=== PATIENT | male | born 1975 | race Caucasian/White ===

== ENCOUNTER 2019-03-26 06:25 | Day surgery (SDC) | payer MEDICAID, MEDICARE ==
[~2019-03-26] VITALS: Ht 175.3 cm; Wt 77.0 kg
[~2019-03-26 06:25] MED LIST: ADV250INH PO; COPP2TAB PO; GABA800T4 PO; LEVE500T5 PO; LR 1,000 ML IV ONE; PANT40TA3 PO; PROAAER10 INH; SPIR1CAP INH
[2019-03-26] MEDS ORDERED: LIDOCAINE 2% INJ 100 MG/5 ML SDV (FOR ANES.) As Ordered ONE ×2 (07:12→07:14)
[2019-03-26] MEDS ORDERED: PROPOFOL 200 MG/20 ML VIAL As Ordered ONE ×3 (07:12→07:34)
[2019-03-26] MEDS ORDERED: ROCURONIUM BROMIDE 50 MG/5 ML VIAL As Ordered ONE (07:14)
[2019-03-26] MEDS ORDERED: MIDAZOLAM INJ 2 MG/2 ML VIAL (J2250) As Ordered ONE (07:14)
[2019-03-26] MEDS ORDERED: fentaNYL 100 MCG/2 ML INJECTION (J3010) As Ordered ONE (07:14)
[2019-03-26] MEDS ORDERED: THROMBIN SOLN 5,000 UNITS VIAL As Ordered ONE (07:18)
[2019-03-26] MEDS ORDERED: CETACAINE SPRAY 5GM As Ordered ONE (07:18)
[2019-03-26] MEDS ORDERED: EPINEPHrine 1MG/10ML SYRINGE 1.5IN As Ordered ONE (07:18)
[2019-03-26] MEDS ORDERED: LIDOCAINE 1% SDV INJ 30 ML VIAL As Ordered ONE (07:18)
[2019-03-26] MEDS ORDERED: LIDOCAINE VISCOUS 2% SOLN 15ML UDC As Ordered ONE (07:19)
[2019-03-26] MEDS ORDERED: ONDANSETRON 4MG/2ML VIAL (J2405) As Ordered ONE (08:03)
[2019-03-26] MEDS ORDERED: METOCLOPRAMIDE INJ 10MG/2ML VIAL (J2765) As Ordered ONE (08:03)
[2019-03-26] MEDS ORDERED: PHENYLephrine HCL 500 MCG/5 ML (100MCG/ML) SYRINGE (J2370) As Ordered ONE ×2 (08:12→08:23)
[2019-03-26] MEDS ORDERED: ePHEDrine SULFATE 25 MG/5 ML(5MG/ML) SYRINGE As Ordered ONE (08:19)
[2019-03-26] MEDS ORDERED: GLYCOPYRROLATE INJ 0.2 MG/ML 2 ML VIAL As Ordered ONE (08:22)
[2019-03-26] MEDS ORDERED: PHENYLEPHRINE INJ 10MG/ML VIAL (J2370) As Ordered ONE (08:27)
[2019-03-26 09:55] VITALS: BP 116/74
[2019-03-26] MEDS ORDERED: SUGAMMADEX SODIUM 500 MG/5 ML VIAL (BRIDION) As Ordered ONE (09:57)
--- NOTE | 2019-03-26 10:32 | REP ---
Portable chest x-ray: Single view. History: Postop. No comparison imaging. Findings: There is widening of the right paratracheal silhouette consistent with mediastinal lymphadenopathy. There is a nodular opacity in the perihilar region on the right which measures 2.2 cm. A second possible nodule is seen overlying the right heart border similar in size. A faint nodular opacity is seen in the periphery of the left mid lung zone. This is equivocal. Pleural angles are sharp. There is no evidence of pneumothorax. There is a skin fold visible on the left. Surgical clips are noted in the upper abdomen. Impression: Mediastinal lymphadenopathy with right and possibly left lung nodules. No pneumothorax seen. There is a artifactual density projecting over the left perihilar region. Electronically Signed by Yousuf Fam MD 03/26/2019 12:54 P
--- NOTE | 2019-03-26 11:21 | ROOR ---
Patient Name: Gustavo Mckinney Procedure Date: 03/26/2019 7:19 AM Date of : 1975 Admit Type: Outpatient Age: 43 Note Status: Finalized Attending MD: Daria Reaves MD Procedure: Bronchoscopy Indications: Right upper lobe nodule, Paratracheal adenopathy Providers: Daria Reaves MD (Doctor) Referring MD: 1. No Referring Physician 1. No Referring Physician, Admin. (Referring MD) Requesting Physician: Medicines: General Anesthesia, Cetacaine topical Complications: No immediate complications. Estimated blood loss: Minimal Procedure: Pre-Anesthesia Assessment: - Prior to the procedure, a History and Physical was performed, and patient medications and allergies were reviewed. The patient's tolerance of previous anesthesia was also reviewed. The risks and benefits of the procedure and the sedation options and risks were discussed with the patient. All questions were answered, and informed consent was obtained. Prior Anticoagulants: The patient has taken no previous anticoagulant or antiplatelet agents. ASA Grade Assessment: III - A patient with severe systemic disease. After reviewing the risks and benefits, the patient was deemed in satisfactory condition to undergo the procedure. The Bronchoscope was introduced through the mouth, via the endotracheal tube (the patient was intubated for the procedure) and advanced to the tracheobronchial tree of both lungs. The procedure was accomplished without difficulty. The patient tolerated the procedure well. Findings: The endotracheal tube is in good position. The visualized portion of the trachea is of normal caliber. The scotty is sharp. The tracheobronchial tree was examined to at least the first subsegmental level. Bronchial mucosa showed some pitting and webbing throughout. Bronchial anatomy was normal with a variant in lingula with three bronchial segmental branches; there are no endobronchial lesions, some nodularity of cartilage. There were scant white secretions noted Electromagnetic navigation bronchoscopy utilizing the [employer] MFGDimension system with iLogic upgrade was performed. The CT scan was used for planning purposes. A virtual bronchoscopic image was generated using the planning software and the scotty, left main bronchus scotty, left lower lobe basilar segment, right upper lobe, right middle lobe and right lower lobe basilar segment registration points were marked on the virtual image. The target in the anterior segment of the right upper lobe was marked. A nodule approx 1.2 cm in size was found and a pathway was created. After a complete airway exam, the locatable guide/extended working channel was inserted and an automatic registration was performed by advancing the scope through the scotty, left main bronchus scotty, left lower lobe basilar segment, right upper lobe, right middle lobe and right lower lobe basilar segment. The navigation phase was then begun to locate the target lesion(s). Positioning off-center (in relation to the lesion) was confirmed using the Olympus radial probe US catheter. The locatable guide was removed from the extended working channel. Fluoroscopy guided transbronchial brushings of a nodule were obtained in the anterior segment of the right upper lobe with a needle brush and sent for routine cytology. Transbronchial brushing technique was selected because the sampling site was not visible endoscopically. Transbronchial needle aspirations of a nodule were performed in the anterior segment of the right upper lobe using GenCut needle and sent for routine cytology and microbiology analysis. The procedure was guided by fluoroscopy. Transbronchial needle aspiration technique was selected because the sampling site was not visible endoscopically. Transbronchial biopsies of a nodule were performed in the anterior segment of the right upper lobe using forceps and sent for histopathology examination. The procedure was guided by fluoroscopy. Transbronchial biopsy technique was selected because the sampling site was not visible endoscopically. An endobronchial ultrasound endoscope was utilized in order to assist with fine needle aspiration in the right paratracheal area. Transbronchial needle aspirations of a lymph node were performed in the right paratracheal area using an Olympus EBUS-TBNA 21 gauge needle and sent for routine cytology and flow cytometry. The procedure was guided by ultrasound. Transbronchial needle aspiration technique was selected because the sampling site was not visible endoscopically. Impression: - Right upper lobe nodule - Paratracheal adenopathy - The airway examination was normal. - Electromagnetic navigation bronchoscopy was performed. - Transbronchial brushings were obtained. - A transbronchial needle aspiration was performed. - Transbronchial lung biopsies were performed. - Endobronchial ultrasound was performed. - A transbronchial needle aspiration was performed. Recommendation: - Await test results. Attending Participation: I personally performed the entire procedure. Daria Reaves MD 03/26/2019 11:21:18 AM Number of Addenda: 0 Note Initiated On: 03/26/2019 7:19 AM
== END 2019-03-26 10:23 | disposition home or self-care (01) ==
LOC: M SDC 06:25
PROVIDERS: ATTEND Internal Medicine Pulmonary Disease
DX: C34.11 Malignant neoplasm of upper lobe, right bronchus or lung (principal); C77.1 Secondary and unspecified malignant neoplasm of intrathoracic lymph nodes; R91.1 Solitary pulmonary nodule; R59.9 Enlarged lymph nodes, unspecified; J43.9 Emphysema, unspecified; E04.1 Nontoxic single thyroid nodule; E78.5 Hyperlipidemia, unspecified; F31.9 Bipolar disorder, unspecified; R51 Headache; G47.33 Obstructive sleep apnea (adult) (pediatric); R06.83 Snoring; M54.81 Occipital neuralgia; F17.210 Nicotine dependence, cigarettes, uncomplicated; Z88.5 Allergy status to narcotic agent; Z79.899 Other long term (current) drug therapy; Z98.84 Bariatric surgery status
CPT/HCPCS: 31623; 31627; 31628; 31629; 31652; 71045; 76000; 87070; 87102; 87116; 87205; 87206; 88104; 88108; 88173; 88305; 88313; 88341; 88342; J2250; J2370; J2405; J2765; J3010

== ENCOUNTER → 2021-08-08 | Outpatient (CLI) | payer MEDICARE ==
[~2021-08-08] MED LIST changes: +BRIN10TA4 PO; +FLUTISP INH; +IPRA0.00; -LR 1,000 ML IV ONE; +OMEP40CA4 PO; +PANT40TA29 PO; -PANT40TA3 PO; +TAMS1CAP17 PO
== END ==
LOC: M LABSMTC 11:52
PROVIDERS: ATTEND Anesthesiology
DX: Z01.818 Encounter for other preprocedural examination (principal); Z20.822 Contact with and (suspected) exposure to COVID-19

== ENCOUNTER 2021-08-10 07:50 | Day surgery (SDC) | payer MEDICARE ==
[~2021-08-10] VITALS: Ht 180.3 cm; Wt 81.6 kg
[~2021-08-10 07:50] MED LIST changes: +LR 1,000 ML IV ONE; +ceFAZolin SOD 2 GM in IV 1 EA IV ONE
[2021-08-10] MEDS ORDERED: MIDAZOLAM INJ 2MG/2ML VIAL (J2250 PER 1MG) As Ordered ONE (07:56)
[2021-08-10] MEDS ORDERED: ACETAMINOPHEN 1000MG 100ML IV BTL (OFIRMEV) (J0131 PER 10MG) As Ordered ONE (07:57)
[2021-08-10] MEDS ORDERED: fentaNYL 100 MCG/2 ML INJECTION As Ordered ONE (07:57)
[2021-08-10] MEDS ORDERED: ONDANSETRON 4MG/2ML VIAL As Ordered ONE ×2 (07:57→07:58)
[2021-08-10] MEDS ORDERED: SUGAMMADEX SODIUM 500 MG/5 ML VIAL (BRIDION) As Ordered ONE (07:57)
[2021-08-10] MEDS ORDERED: dexameTHASONE 4 MG/ML 1ML VIAL (J1100 PER 1MG) As Ordered ONE ×2 (07:57→07:58)
[2021-08-10] MEDS ORDERED: ROCURONIUM BROMIDE 50 MG/5 ML VIAL As Ordered ONE ×2 (07:58→12:09)
[2021-08-10] MEDS ORDERED: LIDOCAINE 2% 100MG/5ML SDV (FOR ANES.) As Ordered ONE (07:58)
[2021-08-10] MEDS ORDERED: FLUT1BLS8 INH (08:18)
[2021-08-10] MEDS ORDERED: BACITRACIN OINTMENT 30GM TUBE As Ordered ONE (09:31)
[2021-08-10] MEDS ORDERED: GENTAMICIN 80 MG in IV 1 EA IV ONE (10:05)
[2021-08-10] MEDS ORDERED: VANCOMYCIN HCL 1,000 MG, VIAL MATE ADAPTER 1 EACH in NS 250 ML IV ONE (10:05)
[2021-08-10] MEDS ORDERED: PHENYLephrine 500MCG 5ML (100MCG/ML) SYRINGE As Ordered ONE ×2 (10:35→11:18)
[2021-08-10] MEDS ORDERED: propofoL 200 MG/20 ML VIAL As Ordered ONE (12:11)
[2021-08-10] MEDS ORDERED: OXYC1TAB23 PO (13:08)
[2021-08-10] MEDS ORDERED: LR 1,000 ML IV SCH (13:15)
[2021-08-10] MEDS ORDERED: ONDANSETRON 4MG/2ML VIAL IV PRN (13:15)
[2021-08-10] MEDS ORDERED: fentaNYL 100 MCG/2 ML INJECTION IV PRN (13:15)
[2021-08-10] MEDS ORDERED: PERCOCET 5MG/325MG TAB PO PRN (13:20)
[2021-08-10] MEDS: oxyCODONE 5MG TAB PO PRN ×2 (13:26→14:03)
[2021-08-10 14:05] VITALS: BP 132/80
== END 2021-08-10 14:34 | disposition home or self-care (01) ==
LOC: M SDC 07:50
PROVIDERS: ATTEND Urology
DX: N48.6 Induration penis plastica (principal); J44.9 Chronic obstructive pulmonary disease, unspecified; F17.218 Nicotine dependence, cigarettes, with other nicotine-induced disorders; G40.909 Epilepsy, unspecified, not intractable, without status epilepticus; Z85.118 Personal history of other malignant neoplasm of bronchus and lung; Z92.3 Personal history of irradiation; Z92.21 Personal history of antineoplastic chemotherapy; Z98.84 Bariatric surgery status; K21.9 Gastro-esophageal reflux disease without esophagitis; Z88.0 Allergy status to penicillin; Z88.5 Allergy status to narcotic agent; Z79.899 Other long term (current) drug therapy; E04.2 Nontoxic multinodular goiter
CPT/HCPCS: 54110; J0131; J1100; J1580; J2250; J2370; J2405; J3010; J3370

== ENCOUNTER → 2022-04-21 | Outpatient (CLI) | payer MEDICARE ==
[~2022-04-21] MED LIST changes: +FLUT1BLS8 INH; +ISOVUE-370 76% 100ML VIAL As Ordered ONE; -LR 1,000 ML IV ONE; +OXYC1TAB23 PO; -ceFAZolin SOD 2 GM in IV 1 EA IV ONE
== END ==
LOC: M RAD 13:01
PROVIDERS: ATTEND Internal Medicine
DX: J31.2 Chronic pharyngitis (principal); R13.10 Dysphagia, unspecified; R93.89 Abnormal findings on diagnostic imaging of other specified body structures; Z72.0 Tobacco use; C34.11 Malignant neoplasm of upper lobe, right bronchus or lung; R53.1 Weakness; D61.818 Other pancytopenia; J84.10 Pulmonary fibrosis, unspecified; Z98.84 Bariatric surgery status; N28.1 Cyst of kidney, acquired; Z90.49 Acquired absence of other specified parts of digestive tract
CPT/HCPCS: 71260; Q9967

== ENCOUNTER → 2022-08-31 | Outpatient (CLI) | payer MEDICARE ==
[~2022-08-31] MED LIST changes: +FLUT50SP17 INH; -FLUTISP INH
== END ==
LOC: M RAD 07:55
PROVIDERS: ATTEND Internal Medicine
DX: J31.2 Chronic pharyngitis (principal); I70.0 Atherosclerosis of aorta; I25.10 Atherosclerotic heart disease of native coronary artery without angina pectoris; Z98.84 Bariatric surgery status; N28.1 Cyst of kidney, acquired; J43.9 Emphysema, unspecified; J47.9 Bronchiectasis, uncomplicated; Z85.118 Personal history of other malignant neoplasm of bronchus and lung
CPT/HCPCS: 71260; Q9967

== ENCOUNTER → 2022-09-07 | Outpatient (CLI) | payer MEDICARE ==
[~2022-09-07] MED LIST changes: -ISOVUE-370 76% 100ML VIAL As Ordered ONE
[2022-09-07 10:10] LABS: BASO % 0.9 % (0.0-1.0); EOS # 0.1 10^3/uL (0.0-0.5); EOS % 3.1 % (0.0-3.0); HEMOGLOBIN 15.5 g/dl (13.5-17.5); LYMPH # 1.2 10^3/uL (1.5-5.0); LYMPH % 26.5 % (24.0-44.0); MEAN CORPUSCULAR HEMOGLOBIN 30.6 pg (27.0-33.0); MEAN CORPUSCULAR HGB CONC 33.7 g/dl (32.0-36.5); MEAN CORPUSCULAR VOLUME 90.9 fl (80.0-96.0); MONO # 0.5 10^3/uL (0.0-0.8); MONO % 10.1 % (2.0-8.0); NEUTROPHILS # 2.6 10^3/uL (1.5-8.5); NEUTROPHILS % 59.2 % (36.0-66.0); PLATELET COUNT, AUTOMATED 169 10^3/uL (150-450); RED BLOOD COUNT 5.06 10^6/uL (4.30-6.10); WHITE BLOOD COUNT 4.5 10^3/uL (4.0-10.0)
[2022-09-07 10:42] LABS: LDH LACTATE DEHYDROGENASE 192 U/L (120-246)
[2022-09-07 10:45] LABS: ALKALINE PHOSPHATASE 110 U/L (46-116); ALT/SGPT 25 U/L (7.0-40); AST/SGOT 30 U/L (<34); BILIRUBIN,TOTAL 0.5 MG/DL (0.3-1.2); BLOOD UREA NITROGEN 18 MG/DL (9-23); CALCIUM LEVEL 9.1 MG/DL (8.5-10.1); CARBON DIOXIDE LEVEL 31 MMOL/L (20-31); CHLORIDE LEVEL 103 MMOL/L (98-107); CREATININE FOR GFR 1.15 MG/DL (0.70-1.30); GLOMERULAR FILTRATION RATE > 60.0 (>60); GLUCOSE, FASTING 77 MG/DL (60-100); POTASSIUM SERUM 4.2 MMOL/L (3.5-5.1); SODIUM LEVEL 139 MMOL/L (136-145)
== END ==
LOC: M LAB 09:03
PROVIDERS: ATTEND Internal Medicine
DX: F43.21 Adjustment disorder with depressed mood (principal); J31.2 Chronic pharyngitis; R93.89 Abnormal findings on diagnostic imaging of other specified body structures; Z72.0 Tobacco use; C34.11 Malignant neoplasm of upper lobe, right bronchus or lung; R53.1 Weakness; D61.818 Other pancytopenia

== ENCOUNTER 2023-01-17 12:45 | Emergency (ER) | payer MEDICARE, OTHER ==
[~2023-01-17] VITALS: Ht 180.3 cm; Wt 80.9 kg
[2023-01-17 12:46] VITALS: BP 111/74; TEMP 97.4; O2SAT 99
== END 2023-01-17 13:40 | disposition left against medical advice (07) ==
LOC: M ED 12:45
DX: Z53.21 Procedure and treatment not carried out due to patient leaving prior to being seen by health care provider (principal)

== ENCOUNTER 2023-02-15 04:58 | Emergency (ER) | payer OTHER ==
[~2023-02-15] VITALS: Ht 180.3 cm; Wt 74.9 kg
[2023-02-15 05:03] VITALS: BP 146/77; TEMP 98.9; O2SAT 98
== END 2023-02-15 11:00 | disposition left against medical advice (07) ==
LOC: M ED 04:58
DX: Z53.21 Procedure and treatment not carried out due to patient leaving prior to being seen by health care provider (principal)

== ENCOUNTER → 2023-02-19 | Outpatient (CLI) | payer OTHER | LOC: M PLARAD 11:06 | PROVIDERS: ATTEND Internal Medicine | DX: C34.11 Malignant neoplasm of upper lobe, right bronchus or lung (principal) | CPT/HCPCS: 78815; A9552 ==

== ENCOUNTER → 2023-03-14 | Outpatient (CLI) | payer OTHER, MEDICAID ==
[~2023-03-14] MED LIST changes: +ISOVUE-370 76% 100ML VIAL As Ordered ONE
== END ==
LOC: M RAD 17:21
PROVIDERS: ATTEND Internal Medicine
DX: C34.11 Malignant neoplasm of upper lobe, right bronchus or lung (principal); J47.9 Bronchiectasis, uncomplicated; J84.10 Pulmonary fibrosis, unspecified; J43.9 Emphysema, unspecified
CPT/HCPCS: 71260; Q9967